=== PATIENT | female | born 1975 | race Caucasian/White ===

== ENCOUNTER 2017-10-11 09:56 | Emergency (ER) | payer MEDICAID ==
[~2017-10-11] VITALS: Ht 152.4 cm; Wt 59.0 kg
[~2017-10-11 09:56] MED LIST: PREN-56 PO
--- NOTE | 2017-10-11 10:03 | NUR ---
PT AMBULATES TO BED 5
[2017-10-11 10:11] VITALS: BP 141/87
--- NOTE | 2017-10-11 10:15 | NUR ---
PATIENT PRESENTS TO ED WITH COMPLAINTS OF COCYX PAIN THAT RADIATES TO LOWER ABDOMEN AND VAGINA X 9 MONTHS. PATIENT STATES SHE SAW A BALL COME OUT OF HER VAGINA AND IS WORRIED IT MIGHT BE HER UTERUS. DENIES N/V/D; SKIN IS PINK/WARM/DRY; AAOX4 WITH EVEN AND STEADY GAIT; LUNGS CLEAR BL; HR EVEN AND REGULAR; PT DENIES ANY FEVER, CP, SOB, OR COUGH AT THIS TIME; PATIENT STATES PAIN OF 10/10 AT THIS TIME; VSS; PATIENT POSITIONED FOR COMFORT; HOB ELEVATED; BEDRAILS UP X1; BED DOWN. ER MD MADE AWARE OF PT STATUS.
--- NOTE | 2017-10-11 10:20 | NUR ---
DR LEWIS EVALUATING PT AT BEDSIDE
--- NOTE | 2017-10-11 10:21 | NUR ---
Female Poultry Raiser accompanied female patient for Pelvic Exam.
[2017-10-11] MEDS ORDERED: CLINDAMYCIN 600 MG/4 ML VIAL IM ONE (10:30)
[2017-10-11] MEDS ORDERED: KETOROLAC 60 MG/2 ML VIAL IM ONE (10:30)
[2017-10-11 10:51] LABS: BARBITURATE, URINE NEG. ng/ml (NEG <=200); BENZODIAZEPINE, URINE NEG. ng/mL (NEG <=200); CANNABINOID, URINE NEG. ng/mL (NEG <=50); COCAINE, URINE NEG. ng/mL (NEG <=300); OPIATE, URINE NEG. ng/mL (NEG <=2000); PHENCYCLIDINE SCREEN,URINE NEG. ng/mL (NEG <=25)
[2017-10-11 10:58] LABS: BILIRUBIN,URINE NEGATIVE (NEGATIVE); BLOOD, URINE 2+ (NEGATIVE); COLOR,URINE YELLOW (YELLOW); LEUKOCYTE ESTERASE ,URINE 1+ (NEGATIVE); NITRITE, URINE NEGATIVE (NEGATIVE); PH,URINE 6.5 (5.0-9.0); UGLUCOSE NEGATIVE (NEGATIVE)
[2017-10-11 10:59] LABS: APPEARANCE,URINE HAZY (CLEAR)
[2017-10-11 11:00] LABS: RBC,URINE 3-10 (FEW) /HPF (0-5); WBC,URINE 0-5 (RARE) /HPF (0-5)
[2017-10-11 11:05] VITALS: BP 141/87
--- NOTE | 2017-10-11 11:05 | NUR ---
Patient discharged with v/s stable. Written and verbal after care instructions given and explained. Patient alert, oriented and verbalized understanding of instructions. Ambulatory with steady gait. All questions addressed prior to discharge. ID band removed. Patient advised to follow up with PMD. Rx of IBUPROFEN AND CLINDAMYCIN given. Patient educated on indication of medication including possible reaction and side effects. Opportunity to ask questions provided and answered.
== END 2017-10-11 11:05 | disposition home or self-care (01) ==
LOC: MED 09:56
DX: N75.0 Cyst of Bartholin's gland (principal); F41.1 Generalized anxiety disorder; I10 Essential (primary) hypertension; F32.9 Major depressive disorder, single episode, unspecified
CPT/HCPCS: 80305; 81001; 81025; 87086; 96372; 99284; J1885; J3490

== ENCOUNTER 2020-07-20 03:24 | Emergency (ER) | payer MEDICAID, OTHER ==
[~2020-07-20] VITALS: Ht 160 cm; Wt 76.7 kg
[2020-07-20 03:31] VITALS: BP 141/98
--- NOTE | 2020-07-20 03:36 | NUR ---
TO ER BED 9
--- NOTE | 2020-07-20 03:45 | NUR ---
45 Y/O PT CAME TO THE ED C/O LT ARM PAIN. PT STATED THAT " I GOT THE COVID VACCINE LAST THURSDAY, AND EVER SINCE THAT I DEVELOPED LT ARM PAIN THAT RADIATES TO UPPER ARM AND WORSENS WHEN I AM MOVING IT X 3 DAYS AGO." DENIES N/V/D; SKIN IS PINK/WARM/DRY; AAOX4 WITH EVEN AND STEADY GAIT; L VSS; PATIENT POSITIONED FOR COMFORT; HOB ELEVATED; BED DOWN. ER MD MADE AWARE OF PT STATUS. NKA PMH: DENIES
--- NOTE | 2020-07-20 03:54 | NUR ---
Patient being evaluated by physician at bedside.
--- NOTE | 2020-07-20 04:22 | NUR ---
Blood labs collected , walked to lab and handed to Jared from lab.
[2020-07-20 04:34] LABS: BASOPHILS % (AUTO) 0.3 % (0.0-2.0); HEMATOCRIT 44.4 % (36-48); HEMOGLOBIN 14.5 g/dL (12.0-16.0); LYMPHOCYTES # (AUTO) 1.7 K/uL (2.5-16.5); LYMPHOCYTES % (AUTO) 15.5 % (20.5-51.1); MEAN CORPUSCULAR HEMOGLOBIN 27 pg (27-31); MEAN CORPUSCULAR HGB CONC 33 g/dL (33-37); MEAN CORPUSCULAR VOLUME 83.8 fL (80-94); MONOCYTES # (AUTO) 0.7 K/uL (0.8-1.0); MONOCYTES % (AUTO) 6.4 % (1.7-9.3); NEUTROPHILS # (AUTO) 8.3 K/uL (1.8-7.7); NEUTROPHILS % (AUTO) 77.8 % (42.2-75.2); PLATELET COUNT (AUTO) 300 K/uL (140-450); RED CELL DISTRIBUTION WIDTH 13.6 % (11.6-13.7); WHITE BLOOD COUNT (AUTO) 10.7 K/uL (4.8-10.8)
[2020-07-20] MEDS: IBUPROFEN 800 MG TAB PO ONE (04:43)
[2020-07-20 05:07] LABS: ALBUMIN 3.6 g/dL (3.4-5.0); CARBON DIOXIDE 24.8 mmol/L (21-32); CREATININE 0.6 mg/dL (0.6-1.3); POTASSIUM 3.8 mmol/L (3.5-5.1); TOTAL BILIRUBIN 0.8 mg/dL (0.0-1.0)
[2020-07-20] MEDS: methylPREDNISolone SS 125 MG/2 ML VIAL IVP ONE (06:27)
[2020-07-20] MEDS: HYDROcodone/APAP 10/325 MG 1 TAB TAB PO ONE (06:28)
--- NOTE | 2020-07-20 07:14 | NUR ---
GIVEN REPORT TO MANJULA THORNE FOR CONTINUITY OF CARE
--- NOTE | 2020-07-20 07:37 | NUR ---
PT STATES SHE IS NOW C/O ABD PAIN ABOVE UMBILICUS. "MY STOMACH IS HURTING NOW, I NEED SOMETHING TO EAT". ERMD MADE AWARE.
[2020-07-20] MEDS ORDERED: IBUP-2218 PO (09:03)
[2020-07-20] MEDS ORDERED: PRED20TA5 PO (09:03)
[2020-07-20 09:15] VITALS: BP 141/98
--- NOTE | 2020-07-20 09:15 | NUR ---
Patient discharged with v/s stable. Written and verbal after care instructions given and explained. Patient alert, oriented and verbalized understanding of instructions. Ambulatory with steady gait. All questions addressed prior to discharge. ID band removed. Patient advised to follow up with PMD. Rx of IBUPROFEN, PREDNISONE given. Patient educated on indication of medication including possible reaction and side effects. Opportunity to ask questions provided and answered.
== END 2020-07-20 09:15 | disposition home or self-care (01) ==
LOC: MED 03:24
DX: M79.602 Pain in left arm (principal); I10 Essential (primary) hypertension; Z79.899 Other long term (current) drug therapy
CPT/HCPCS: 36415; 71045; 73090; 80053; 82550; 84484; 85025; 85379; 85651; 93005; 96374; 99285; J2930

== ENCOUNTER 2021-12-02 10:10 | Emergency (ER) | payer OTHER ==
[~2021-12-02] VITALS: Ht 160 cm; Wt 59.0 kg
[~2021-12-02 10:10] MED LIST changes: +IBUP-2218 PO; +PRED20TA5 PO
--- NOTE | 2021-12-02 10:14 | NUR ---
PT AMBULATED TO BED 11.
[2021-12-02 10:16] VITALS: BP 130/79
--- NOTE | 2021-12-02 10:20 | NUR ---
DR. MUHAMMAD AT BEDSIDE.
--- NOTE | 2021-12-02 10:20 | NUR ---
received in [facility] for right sided facial droop and headache since yesterday. denies med hx. no slurred speech. - arm drift. denies chest pain, dizziness,n,v,fever, sob. ambulatory with steady gait. vss.
[2021-12-02] MEDS ORDERED: PRED20TA5 PO (11:10)
[2021-12-02] MEDS ORDERED: ACYC-276 PO (11:10)
[2021-12-02] MEDS ORDERED: METOCLOPRAMIDE 10 MG TAB PO ONE (11:15)
[2021-12-02] MEDS ORDERED: KETOROLAC 30 MG/ML VIAL IM ONE (11:15)
[2021-12-02 11:23] VITALS: BP 131/80
--- NOTE | 2021-12-02 11:23 | NUR ---
Patient discharged with v/s stable. Written and verbal after care instructions given and explained. Patient alert, oriented and verbalized understanding of instructions. Ambulatory with steady gait. All questions addressed prior to discharge. ID band removed. Patient advised to follow up with PMD. Rx of Acyclovir and Prednisone given. Patient educated on indication of medication including possible reaction and side effects. Opportunity to ask questions provided and answered.
== END 2021-12-02 11:23 | disposition home or self-care (01) ==
LOC: MED 10:10
DX: G51.0 Bell's palsy (principal)
CPT/HCPCS: 81002; 81025; 96372; 99283; J1885; J8597

== ENCOUNTER 2022-08-03 11:21 | Emergency (ER) | payer OTHER ==
[~2022-08-03] VITALS: Ht 154.9 cm; Wt 77.6 kg
[~2022-08-03 11:21] MED LIST changes: +ACYC-276 PO
[2022-08-03 11:29] VITALS: BP 134/93
[2022-08-03] MEDS ORDERED: IBUPROFEN 600 MG TAB PO ONE (11:35)
[2022-08-03] MEDS ORDERED: HYDROcodone/APAP 5/325 MG 1 TAB TAB PO ONE (11:35)
[2022-08-03] MEDS ORDERED: DICL100G5 TP (12:13)
[2022-08-03] MEDS ORDERED: IBUP-2213 PO (12:13)
--- NOTE | 2022-08-03 12:19 | NUR ---
thumb spica applied
--- NOTE | 2022-08-03 13:03 | NUR ---
Patient discharged with v/s stable. Written and verbal after care instructions given and explained. Patient alert, oriented and verbalized understanding of instructions. Ambulatory with to home. All questions addressed prior to discharge. ID band removed. Patient advised to follow up with PMD. Rx of DICLOFENAC MOTRIN given. Patient educated on indication of medication including possible reaction and side effects. Opportunity to ask questions provided and answered.
== END 2022-08-03 13:03 | disposition home or self-care (01) ==
LOC: MED 11:31
DX: S63.602A Unspecified sprain of left thumb, initial encounter (principal); Z79.899 Other long term (current) drug therapy; W19.XXXA Unspecified fall, initial encounter; Y93.89 Activity, other specified; Y92.89 Other specified places as the place of occurrence of the external cause; Y99.8 Other external cause status
CPT/HCPCS: 73140; 99283

== ENCOUNTER 2023-08-03 15:17 | Emergency (ER) | payer OTHER ==
[~2023-08-03] VITALS: Ht 157.5 cm; Wt 69.2 kg
[~2023-08-03 15:17] MED LIST changes: +DICL100G32 TP; +IBUP-2213 PO
[2023-08-03 15:44] VITALS: BP 141/93; PULSE 85; RESP 20; TEMP 98.3; O2SAT 100
[2023-08-03 17:06] LABS: APPEARANCE,URINE CLEAR (CLEAR); BILIRUBIN,URINE NEGATIVE (NEGATIVE); BLOOD, URINE 1+ (NEGATIVE); COLOR,URINE YELLOW (YELLOW); LEUKOCYTE ESTERASE ,URINE NEGATIVE (NEGATIVE); NITRITE, URINE NEGATIVE (NEGATIVE); PROTEIN,URINE NEGATIVE (NEGATIVE); UGLUCOSE NEGATIVE (NEGATIVE); UROBILINOGEN,URINE 0.2 EU/dL (0.2 - 1)
[2023-08-03 18:22] LABS: FLU A ANTIGEN negative (NEGATIVE); FLU B ANTIGEN NEGATIVE (NEGATIVE)
[2023-08-03] MEDS: KETOROLAC 60 MG/2 ML VIAL IM ONE (19:03)
[2023-08-03 19:11] VITALS: BP 120/63; PULSE 64; RESP 18; TEMP 98.2; O2SAT 99
[2023-08-03] MEDS ORDERED: ONDA8TAB87 PO (19:23)
[2023-08-03] MEDS ORDERED: IBUP-2213 PO (19:23)
[2023-08-03] MEDS ORDERED: OMEP40EC23 PO (19:23)
== END 2023-08-03 19:35 | disposition home or self-care (01) ==
LOC: MED 15:17
DX: R10.13 Epigastric pain (principal); Z20.822 Contact with and (suspected) exposure to COVID-19; R11.0 Nausea; E11.9 Type 2 diabetes mellitus without complications; Z79.4 Long term (current) use of insulin; Z79.899 Other long term (current) drug therapy; Z90.49 Acquired absence of other specified parts of digestive tract
CPT/HCPCS: 81003; 81025; 87426; 87804; 96372; 99283; J1885

== ENCOUNTER 2023-10-26 08:34 | Emergency (ER) | payer OTHER ==
[~2023-10-26] VITALS: Ht 158.8 cm; Wt 66.7 kg
[~2023-10-26 08:34] MED LIST changes: +OMEP40EC23 PO; +ONDA8TAB87 PO
[2023-10-26 08:43] VITALS: BP 115/73; PULSE 86; RESP 18; TEMP 97.8; O2SAT 98
--- NOTE | 2023-10-26 08:50 | NUR ---
PT AMB TO BED 6
--- NOTE | 2023-10-26 09:25 | NUR ---
48YO FEMALE PT C/O ACHING 10/10 HEADACHE AND DRY COUGH X3DAYS. REPORTS ONSET W/ FEVERS. STATES CHEST PAIN ON COUGH. STATES RELIEF AFTER TYLENOL. DENIES DIZZINESS, CHANGE IN VISION, N/V/D, SOB, CHILLS OR SICK CONTACTS. SON W/ S/S. PT AAOX4, RESPIRATIONS EVEN AND UNLABORED. CALL LIGHT WITHIN REACH. 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
--- NOTE | 2023-10-26 09:42 | NUR ---
MD ASTUDILLO AT BEDSIDE FOR EVALUATION
[2023-10-26] MEDS ORDERED: KETOROLAC 30 MG/ML VIAL ONE (09:51)
[2023-10-26] MEDS: KETOROLAC 30 MG/ML VIAL IM ONE (09:57)
[2023-10-26] MEDS ORDERED: IBUP-2213 PO (10:03)
[2023-10-26] MEDS ORDERED: BENZ200C4 PO (10:03)
--- NOTE | 2023-10-26 10:27 | NUR ---
Patient discharged with v/s stable. Written and verbal after care instructions FOR URI given and explained. Patient alert, oriented and verbalized understanding of instructions. Ambulatory with steady gait. All questions addressed prior to discharge. ID band removed. Patient advised to follow up with PMD. Rx of BENZONATATE AND IBUPROFEN given. Opportunity to ask questions provided and answered.
== END 2023-10-26 10:27 | disposition home or self-care (01) ==
LOC: MED 08:34
DX: J06.9 Acute upper respiratory infection, unspecified (principal); E11.9 Type 2 diabetes mellitus without complications; Z79.899 Other long term (current) drug therapy
CPT/HCPCS: 81025; 96372; 99283; J1885

== ENCOUNTER 2023-11-15 18:43 | Emergency (ER) | payer OTHER ==
[~2023-11-15] VITALS: Ht 162.6 cm; Wt 66.7 kg
[~2023-11-15 18:43] MED LIST changes: +BENZ200C4 PO
[2023-11-15 19:18] VITALS: BP 137/87; PULSE 74; RESP 18; TEMP 98.2; O2SAT 99
[2023-11-15] MEDS: CYCLOBENZAPRINE 10 MG TAB PO ONE (20:17)
[2023-11-15] MEDS: KETOROLAC 30 MG/ML VIAL IM ONE (20:19)
[2023-11-15 20:24] LABS: BASOPHILS # (AUTO) 0.1 K/uL (0.00-0.22); BASOPHILS % (AUTO) 0.8 % (0.0-2.0); EOSINOPHILS # (AUTO) 0.1 K/uL (0-0.4); EOSINOPHILS % (AUTO) 1.9 % (0.0-4.0); HEMOGLOBIN 13.8 g/dL (12.0-16.0); LYMPHOCYTES # (AUTO) 2.4 K/uL (2.5-16.5); LYMPHOCYTES % (AUTO) 32.8 % (20.5-51.1); MEAN CORPUSCULAR HEMOGLOBIN 27 pg (27-31); MEAN CORPUSCULAR HGB CONC 33 g/dL (33-37); MONOCYTES # (AUTO) 0.7 K/uL (0.8-1.0); MONOCYTES % (AUTO) 9.1 % (1.7-9.3); NEUTROPHILS # (AUTO) 4.1 K/uL (1.8-7.7); NEUTROPHILS % (AUTO) 55.4 % (42.2-75.2); PLATELET COUNT (AUTO) 279 K/uL (140-450); RED BLOOD CELL COUNT(AUTO) 5.18 MIL/uL (4.20-5.40); RED CELL DISTRIBUTION WIDTH 14.3 % (11.6-13.7); WHITE BLOOD COUNT (AUTO) 7.4 K/uL (4.8-10.8)
[2023-11-15 20:45] LABS: ALANINE AMINOTRANSFERASE 26 U/L (12-78); ALBUMIN 3.6 g/dL (3.4-5.0); ALKALINE PHOSPHATASE 120 U/L (50-136); ANION GAP 7.7 (8-16); ASPARTATE AMINOTRANSFERASE 16 U/L (15-37); CALCIUM 8.8 mg/dL (8.5-10.1); CARBON DIOXIDE 33.8 mmol/L (21-32); CHLORIDE 101 mmol/L (98-107); CREATININE 0.8 mg/dL (0.6-1.3); FREE T4 (FREE THYROXINE) 1.12 ng/dL (0.76-1.46); GFR ARICAN-AMERICAN 99 mL/min (>90); GFR NON ARICAN-AMERICAN 82 mL/min (>90); GLUCOSE 158 mg/dL (74-106); POTASSIUM 3.5 mmol/L (3.5-5.1); SODIUM SERUM 139 mmol/L (136-145); TOTAL BILIRUBIN 0.4 mg/dL (0.0-1.0); TOTAL PROTEIN, SERUM 7.1 g/dL (6.4-8.2); UREA NITROGEN, BLOOD 9 mg/dL (7-18)
[2023-11-15] MEDS ORDERED: IBUP-1842 PO (21:52)
[2023-11-15] MEDS ORDERED: HYDR25CA10 PO (21:52)
[2023-11-15] MEDS ORDERED: AMOX1TAB8 PO (22:01)
[2023-11-15 22:15] VITALS: BP 143/81; PULSE 68; RESP 18; TEMP 98.2; O2SAT 99
== END 2023-11-15 22:15 | disposition home or self-care (01) ==
LOC: MED 18:43
DX: S16.1XXA Strain of muscle, fascia and tendon at neck level, initial encounter (principal); R51.9 Headache, unspecified; M79.2 Neuralgia and neuritis, unspecified; F43.9 Reaction to severe stress, unspecified; K02.9 Dental caries, unspecified; E11.9 Type 2 diabetes mellitus without complications; F41.9 Anxiety disorder, unspecified; F32.9 Major depressive disorder, single episode, unspecified; Z79.899 Other long term (current) drug therapy; X58.XXXA Exposure to other specified factors, initial encounter; Y92.89 Other specified places as the place of occurrence of the external cause; Y93.89 Activity, other specified; Y99.8 Other external cause status
CPT/HCPCS: 36415; 70450; 80053; 84439; 84484; 85025; 96372; 99285; J1885

== ENCOUNTER 2023-12-15 07:29 | Emergency (ER) | payer OTHER ==
[~2023-12-15] VITALS: Ht 160 cm; Wt 59.0 kg
[~2023-12-15 07:29] MED LIST changes: +AMOX1TAB8 PO; +HYDR25CA10 PO; +IBUP-1842 PO
[2023-12-15 07:39] VITALS: BP 134/87; PULSE 81; RESP 18; TEMP 98.2; O2SAT 98
[2023-12-15 08:00] VITALS: O2SAT 98
[2023-12-15] MEDS ORDERED: PHEN28OI6 TP (08:21)
[2023-12-15] MEDS ORDERED: SENN1TAB80 PO (08:21)
== END 2023-12-15 08:35 | disposition home or self-care (01) ==
LOC: MED 07:29
DX: K64.4 Residual hemorrhoidal skin tags (principal); R03.0 Elevated blood-pressure reading, without diagnosis of hypertension; E11.9 Type 2 diabetes mellitus without complications; Z90.49 Acquired absence of other specified parts of digestive tract; Z79.899 Other long term (current) drug therapy
CPT/HCPCS: 99282